=== PATIENT | female | born 1965 | race Two or more races ===

== ENCOUNTER 2019-10-27 04:29 | Emergency (ER) | payer SELFPAY ==
[~2019-10-27] VITALS: Ht 152.4 cm; Wt 61.0 kg
--- NOTE | 2019-10-27 04:55 | PHYS DOC ---
General Adult EDM: Chief Complaint: BACK PAIN OR INJURY HPI: HPI: Patient is a 54 year old f p/w back pain onset on the right side hthree days ago getting worse despite tylenol She was told that she should do some leg exercises and so she was trying those with a seem to make the pain worse right side buttock pain radiates down past the knee shooting pain worse with movement and touching the buttock last took pain medication at nine pm. tylenol associated iwth right leg numbness no problems urinating. no pain or burning no fever no trauma. No bowel or bladder incontinence allergies: penicillin Patient who is here from [facility] she cannot get back home due to the reports being close she is staying with her daughter. pmh: no daily medications or medical problems has had hysterectomy. Review of Systems: Review of Systems: Constitutional: Denies fever or chills. [] Eyes: Denies change in visual acuity. [] HENT: Denies nasal congestion or sore throat. [] Respiratory: Denies cough or shortness of breath. [] Cardiovascular: Denies chest pain or edema. [] GI: Denies abdominal pain, nausea, vomiting, bloody stools or diarrhea. [] : Neurologic: Denies headache, negative for trauma Heart Score: Risk Factors: Risk Factors: DM, Current or recent (<one month) smoker, HTN, HLP, family history of CAD, obesity. Risk Scores: Score 0 - 3: 2.5% MACE over next 6 weeks - Discharge Home Score 4 - 6: 20.3% MACE over next 6 weeks - Admit for Clinical Observation Score 7 - 10: 72.7% MACE over next 6 weeks - Early Invasive Strategies Physical Exam: PE: Constitutional: Well developed, well nourished, no acute distress, non-toxic destiney earance. [] HENT: Normocephalic, atraumatic, bilateral external ears normal, oropharynx moist, no oral exudates, nose normal. [] Eyes: PERRLA, EOMI, conjunctiva normal, no discharge. [] Neck: Normal range of motion, no tenderness, supple, no stridor. [] normal respiratory effort no increased work of breathing. Abdomen: Bowel sounds normal, soft, no tenderness, no masses, no pulsatile masses. [] Skin: Warm, dry, no erythema, no rash. [] Back: ttp noted in the right buttock area just over the sciatic nerve as well as in the right paraspinous area no focal midline tenderness. Extremities: No tenderness, no cyanosis, no clubbing, ROM intact, no edema. [] Neurologic: Alert and oriented X 3, normal motor function, normal sensory function, no focal deficits noted. [] Strength and sensation intact bilateral lower extremities Psychologic: Affect normal, judgement normal, mood normal. [] Current Patient Data: Vital Signs: Vital signs are normal patient is afebrile see nurse's notes EKG: EKG: [] Radiology/Procedures: Radiology/Procedures: [] Course & Med Decision Making: Course & Med Decision Making Pertinent Labs and Imaging studies reviewed. (See chart for details) [] This is a 54-year-old female presenting with right back and buttock pain with shooting pain down through the leg pedal pulse and sensation and strength are all intact no blunt trauma I suspect sciatica patient was given Decadron and Dunnegan in the emergency room with a short prescription for Dunnegan recommended ice rest gradual return to activity return precautions discussed patient voiced understanding medical interpreter was used throughout the ER course Walter Disclaimer: Walter Disclaimer: This electronic medical record was generated, in whole or in part, using a voice recognition dictation system. Departure Departure Impression: Primary Impression: Back pain Disposition: HOME, SELF-CARE Condition: STABLE Patient Instructions: Back Pain, Adult Scripts Docusate Sodium (COLACE) 100 Mg Capsule 1 CAP PO BID for 30 Days, #60 CAP 0 Refills Prov: LIMA EMMANUEL MD 10/27/19 Hydrocodone/Apap 5-325 (NORCO 5-325 TABLET) 1 Each Tablet 1-2 EACH PO PRN Q6HRS PRN for PAIN, #15 as needed for pain Prov: LIMA EMMANUEL MD 10/27/19 Justicifation of Admission Dx: Justifications for Admission: Justification of Admission Dx: N/A LIMA EMMANUEL MD Oct 27, 2019 04:55
[2019-10-27] MEDS ORDERED: DOCU-109 PO (05:10)
[2019-10-27] MEDS ORDERED: HYDR-3164 PO (05:10)
[2019-10-27] MEDS ORDERED: DEXAMETHASONE SOD PHOS 20 MG/5 ML VIAL. PO ONE (05:30)
[2019-10-27] MEDS ORDERED: HYDROcodone/APAP 5/325MG 1 TAB TABLET PO ONE (05:30)
[2019-10-27] MEDS ORDERED: ONDANSETRON ODT 4 MG TAB.RAPDIS. PO ONE (05:30)
[2019-10-27 05:35] VITALS: BP 124/73
== END 2019-10-27 05:36 | disposition home or self-care (01) ==
LOC: ER 04:29
DX: M54.5 Low back pain (principal); R20.0 Anesthesia of skin; Z88.0 Allergy status to penicillin
CPT/HCPCS: 99284; J1100